=== PATIENT | male | born 1970 | race Caucasian/White ===

== ENCOUNTER 2024-07-16 17:35 | Emergency (ER) | payer MEDICARE, SELFPAY ==
--- NOTE | ~2024-07-16 | XR_ITS ---
EXAMINATION: XR wrist LT min 3V DATE: 07/16/2024 18:27 INDICATION: Left wrist injury post fall TECHNIQUE: Posteroanterior, ulnar deviation, oblique, and lateral views of the affected wrist were ob tained. COMPARISON: none FINDINGS: Postoperative change of prior proximal row carpectomy with resection of the scaphoid, lunate and triq uetrum. Expected proximal migration of the distal carpal row into the lucent space at the resected pr oximal carpal row. Alignment is otherwise normal. Mild osteoarthritis at the first carpometacarpal khari int. No acute fracture. Soft tissues are unremarkable. IMPRESSION: 1. Postoperative change of prior proximal row carpectomy. No acute osseous abnormality. Reviewed, dictated and finalized at location A. IMPRESSION: 1. Postoperative change of prior proximal row carpectomy. No acute osseous abno rmality.
--- NOTE | 2024-07-16 17:43 | ED.UPPEXIN ---
HPI - Extremity Injury (Upper) General Chief Complaint: Extremity Injury, Upper Stated Complaint: LT Wrist Pain Time Seen by Provider: 07/16/24 17:59 Source: patient and RN notes reviewed Mode of arrival: ambulatory Limitations: no limitations History of Present Illness HPI narrative: 53-year-old male presents with concern for injury to the left wrist. He reports history of ligament injury for which she had surgery 7 months ago. Reports today he caught himself when falling and the left wrist is now painful and swollen. complaint: injury to: left and wrist Review of Systems Review of Systems: CONSTITUTIONAL: Denies malaise, chills, sweats, or fever. SKIN: Denies rash or itching, open skin, laceration, abrasion, redness, warmth MUSCULOSKELETAL: Reports left wrist pain and swelling NEUROLOGIC: Denies numbness, weakness All systems reviewed & are unremarkable except as noted in HPI and below PMFSH Comments At time of signature, agree with nursing past medical, surgical, social and family history. There is no relevant family history pertinent to the presenting complaint Exam Narrative: GENERAL: Well-appearing, well-nourished, and in no acute distress. HEAD: Normocephalic, atraumatic. EYES: PERRLA, conjunctivae clear NECK: Supple. CHEST: Speaks in full sentences. No respiratory distress. HEART: Regular rate and rhythm. Normal and equal peripheral pulses. EXTREMITIES: Left wrist, hand, digits have grossly normal strength and sensation, normal range of motion. Moderate wrist edema without ecchymosis. Normal sensation with sensitivity to light touch and pain. Lateral wrist and hand tenderness. No open wounds, no skin tenting, no devitalized tissue or atrophy, no trophic changes, no obvious deformity, alignment normal, nearby joints and structures intact. Distal pulses palpable and equal bilaterally, skin warm, dry, pink. Capillary refill less than 3 seconds. SKIN: Warm, dry, no rash. NEURO: Alert and oriented x3. PSYCH: Normal mood and affect Course Course Emergency Course: Patient is aware of diagnosis, understands and agrees to treatment plan. Anticipatory guidance given. Patient agrees to follow-up as directed and is aware of reasons to seek care at the emergency department. Portions of this record may have been created with voice recognition software Level of Care: Express Care Visit Vital Signs Vital signs: Vital Signs Temperature 98.0 F 07/16/24 18:00 Pulse Rate 77 08/20/24 18:00 Respiratory Rate 18 07/16/24 18:00 Blood Pressure 117/64 07/16/24 18:00 Pulse Oximetry 98 07/16/24 18:00 Oxygen Delivery Room Air 07/16/24 18:00 Temperature 98.0 F 07/16/24 18:00 Pulse Rate 77 07/16/24 18:00 Respiratory Rate 18 07/16/24 18:00 Blood Pressure 117/64 07/16/24 18:00 Pulse Oximetry 98 07/16/24 18:00 Oxygen Delivery Room Air 07/16/24 18:00 Reviewed. MDM - Extremity Injury (Upper) Imaging Data My impression: Images reviewed, interpreted by radiologist, agree, see report. Radiologist's impression: EXAMINATION: XR wrist LT min 3V DATE: 07/16/2024 18:27 INDICATION: Left wrist injury post fall TECHNIQUE: Posteroanterior, ulnar deviation, oblique, and lateral views of the affected wrist were obtained. COMPARISON: none FINDINGS: Postoperative change of prior proximal row carpectomy with resection of the scaphoid, lunate and triquetrum. Expected proximal migration of the distal carpal row into the lucent space at the resected proximal carpal row. Alignment is otherwise normal. 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 No acute fracture. Soft tissues are unremarkable. IMPRESSION: 1. Postoperative change of prior proximal row carpectomy. No acute osseous abnormality. Critical Care Time Critical Care Time Critical Care Time: No Discharge Plan Discharge Clinical Impression: Sprain and strain of wrist Patient Disposition: Home, Self-Care Con
[2024-07-16 18:00] VITALS: BP 117/64; PULSE 77; RESP 18; TEMP 36.7; O2SAT 98
== END 2024-07-16 18:55 | disposition home or self-care (01) ==
PROVIDERS: Emergency Provider Nurse Practitioner
DX: S63.502A Unspecified sprain of left wrist, initial encounter (principal); S66.912A Strain of unspecified muscle, fascia and tendon at wrist and hand level, left hand, initial encounter; W19.XXXA Unspecified fall, initial encounter
CPT/HCPCS: 73110; 99203; G0463

== ENCOUNTER 2025-06-23 15:26 | Emergency (ER) | payer MEDICARE, OTHER, SELFPAY ==
--- NOTE | 2025-06-23 15:28 | ED_ITS ---
HPI - Skin/Abscess/Foreign Bdy General Chief complaint: Wound/Laceration Stated complaint: Stung by wasp on rt arm tricep Time Seen by Provider: 06/23/25 15:54 Source: patient and RN notes reviewed Mode of arrival: ambulatory Limitations: no limitations History of Present Illness HPI narrative: 54-year-old male presents with concern for last sting on his right upper arm. Reports 4 days ago he was stung by a wasp and since then the area has become tender and he feels a hard tender knot. He denies fever, body aches, chills, sweats. He denies swollen lips, swollen tongue, trouble breathing. He reports a rash on his bilateral ankles. He was doing yd work when he was done. MD complaint: insect bite/sting Related Data Home Medications ?Medication ?Instructions ?Recorded ?Confirmed ?Last Taken ?Type dextroamphetamine-amphetamine ER PO 06/23/25 Unknown History 30 mg 24hr capsule,extend release escitalopram oxalate 20 mg tablet mg 06/23/25 Unknown History lamotrigine 100 mg disintegrating mg 06/23/25 Unknown History tablet levothyroxine 100 mcg tablet mcg 06/23/25 Unknown History pantoprazole 40 mg tablet,delayed mg PO 06/23/25 Unknown History release Allergies Allergy/AdvReac Type Severity Reaction Status Date / Time Penicillins Allergy Mild Hives Verified 06/23/25 15:47 Review of Systems Review of Systems: CONSTITUTIONAL: Denies malaise, chills, sweats, or fever. EYES: Denies redness, or discharge. ENT: Denies rhinorrhea, congestion, swollen lips, swollen tongue CARDIOVASCULAR: Denies chest pain, palpitations, or edema. RESPIRATORY: Denies cough or dyspnea. GASTROINTESTINAL: Denies abdominal pain, nausea, vomiting SKIN: Reports wasp sting with a painful hard red on his right upper arm. Reports rash on his bilateral lower legs MUSCULOSKELETAL: Denies joint pain or myalgia. NEUROLOGIC: Denies headache. All systems reviewed & are unremarkable except as noted in HPI and below PMFSH Comments At time of signature, agree with nursing past medical, surgical, social and family history. There is no relevant family history pertinent to the presenting complaint Exam Narrative: GENERAL: Well-appearing, well-nourished, and in no acute distress. HEAD: Normocephalic, atraumatic. EYES: PERRLA, conjunctivae clear, and EOMI. ENT: Mucous membranes moist. Oropharynx without edema, erythema or lesions. NECK: Supple. No lymphadenopathy CHEST: Clear to auscultation. No respiratory distress. HEART: Regular rate and rhythm. SKIN: Warm, dry. Approximately 1.5 cm red palpable tender knot on the right tricep surrounded by approximately 7 cm of erythema without induration. No f luctuation or drainage noted. Flat patch of erythema noted to the left ankle. NEURO: Alert and oriented x3. PSYCH: Normal mood and affect Course Course Emergency Course: Patient is aware of diagnosis, understands and agrees to treatment plan. Anticipatory guidance given. Patient agrees to follow-up as directed and is aware of reasons to seek care at the emergency department. Portions of this record may have been created with voice recognition software Level of Care: Express Care Visit Vital Signs Vital signs: Vital Signs Temperature 97.3 F L 06/23/25 15:44 Pulse Rate 76 06/23/25 15:44 Respiratory Rate 18 06/23/25 15:44 Blood Pressure 128/80 06/23/25 15:44 Pulse Oximetry 97 06/23/25 15:44 Oxygen Delivery Room Air 06/23/25 15:44 Temperature 97.3 F L 06/23/25 15:44 Pulse Rate 76 06/23/25 15:44 Respiratory Rate 18 06/23/25 15:44 Blood Pressure 128/80 06/23/25 15:44 Pulse Oximetry 97 06/23/25 15:44 Oxygen Delivery Room Air 06/23/25 15:44 Reviewed. MDM - Skin/Abscess/Foreign Bdy MDM Narrative Medical decision making narrative: Does not appear at this time to be erythema multiforme, bullous, SJS, TEN; no evidence at this time to suggest RMSF, endocarditis or Lyme disease; patient looks well, nontoxic and is tolerating oral intake; no neurologic signs or symptoms; no headache, photophobia or neck pain; afebrile; appropriate for initial outpatient treatment; discussed the importance of follow-up, patient agrees; question, viral exanthema, contact dermatitis, allergic dermatitis, eczema, urticaria, cellulitis, insect sting. No soft palate or uvula edema, no tongue, lip edema or other mucosal involvement, no respiratory compromise, no stridor, no wheezing, no wheezing, no history of syncope, no hypotension, no nausea, vomiting, or diarrhea. Instructed patient to go to nearest ER immediately for any worsening symptoms including but not limited to: fever, spreading rash, pain, sore throat, headache, dizziness, chest pain, trouble breathing, or any symptoms concerning to the patient. Critical Care Time Critical Care Time Critical Care Time: No Discharge Plan Discharge Clinical Impression: Infected insect bite or sting Patient Disposition: Home Condition: Stable Instructions: Antibiotic Form, Cellulitis (ED) Additional Instructions: Take antibiotic as directed Taking an antihistamine such as diphenhydramine (Benadryl) every 6 hours or a nonsedating one such as Zyrtec daily will help with itching and swelling. Take acetaminophen (Tylenol) or ibuprofen (Motrin) for pain relief as needed. Wash the sting site with soap and water. Apply hydrocortisone cream to the sting site and surrounding skin can help relieve redness and itching. Please follow-up with your primary care doctor if your symptoms do not improve. If you have any worsening of symptoms or any other urgent concerns please go to the ER. Please take medications as prescribed and continue taking your home medications as usual. Patient Language: Burkinan Prescriptions: New cephalexin 500 mg capsule 500 mg PO QID 10 Days Qty: 40 0RF No Action levothyroxine 100 mcg tablet pantoprazole 40 mg tablet,delayed release (DR/EC) PO dextroamphetamine-amphetamine 30 mg capsule,extended release 24hr PO escitalopram oxalate 20 mg tablet lamotrigine 100 mg tablet,disintegrating Follow-up/Referrals: Amara,BYRON Lyon [Primary Care Provider] - Time of Disposition: 16:02
--- OUTSIDE RECORDS SUMMARY | 2025-06-23 15:30 | XMS_ITS | Clinical Summary ---
Author Organization [facility] Address [address] [place] [id number] Care Team Providers Care Solid Waste Facility Supervisor Name Role Phone Jeannine Maloney NP Primary Care Provider [phone] Allergies Active Allergy Reactions Criticality Noted Date Comments Alcohol Anaphylaxis High 06/01/2013 Ethyl Alcohol Anaphylaxis High 04/10/2024 Ibuprofen Unknown Low 06/01/2013 NO NSAIDS DUE TO BARIATRIC SURGERY IN PAST NO NSAIDS DUE TO BARIATRIC SURGERY IN PAST NASIDS due to bariatric procedure. Nsaids (Non-Steroidal Anti-Inflammatory Drug) Unknown Medium 11/16/2021 Gastric surgery Penicillins Anaphylaxis,Hives High 05/27/2013 Hives as a child Medications albuterol HFA (PROVENTIL HFA,VENTOLIN HFA,PROAIR HFA) 90 mcg/actuation inhaler Inhale 1 puff every 4 (four) hours 03/29/20 24 Active testosterone cypionate (DEPO-TESTOTERONE) 200 mg/mL injection Inject 1 mL (200 mg total) into the muscle as instructed every 7 days 07/05/20 22 Active gabapentin (NEURONTIN) 300 mg capsule Take 1 capsule (300 mg total) by mouth 3 (three) times a day AND 3 capsules (900 mg total) nightly. 180 capsule 2 11/28/19 25 Active propranoloL (INDERAL) 10 mg tablet Take 1 tablet (10 mg total) by mouth 3 (three) times a day as needed (anxiety) 90 tablet 2 12/04/19 25 Active levothyroxine (SYNTHROID) 100 mcg tablet TAKE 1 TABLET BY MOUTH EVERY MORNING BEFORE BREAKFAST 100 tablet 04/22/[address] (PROTONIX) 40 mg EC tabletIndications: Gastric reflux Take 1 tablet (40 mg total) by mouth daily 90 tablet 3 05/13/20 25 Active escitalopram (LEXAPRO) 20 mg tablet Take 1 tablet (20 mg total) by mouth daily 90 tablet 1 05/13/20 25 Active lamoTRIgine (LaMICtal) 100 mg disintegrating tablet Take 1 tablet (100 mg total) by mouth 2 (two) times a day 180 tablet 1 05/13/20 25 Active Vraylar 6 mg capsule capsule Take 1 capsule (6 mg total) by mouth daily 90 capsule 1 05/13/20 25 Active dextroamphetamine- amphetamine XR (Adderall XR) 30 mg 24 hr capsule Take 2 capsules (60 mg total) by mouth daily 60 capsule 06/16/20 25 Active baclofen (LIORESAL) 10 mg tabletIndications: Muscle Spasticity of Spinal Origin Take 1 tablet (10 mg total) by mouth 2 (two) times a day as needed for muscle spasms 45 tablet 1 09/11/20 24 025 Discontinu ed(Therapy completed) traMADoL (ULTRAM) 50 mg tablet Take 1 tablet (50 mg total) by mouth 2 (two) times a day as needed for pain 60 tablet 1 10/14/20 24 025 Discontinu ed(Therapy completed) atomoxetine (STRATTERA) 80 mg capsule TAKE 1 CAPSULE BY MOUTH DAILY IN THE MORNING 11/11/20 24 025 Discontinu ed(Therapy completed) dextroamphetamine- amphetamine XR (Adderall XR) 30 mg 24 hr capsule Take 2 capsules (60 mg total) by mouth daily 60 capsule 05/13/20 25 025 Discontinu ed(Reorder ) lamoTRIgine (LaMICtal) 100 mg tablet Take 3 tablets (300 mg total) by mouth daily 90 tablet 05/13/20 25 025 Discontinu ed(Duplica te order) doxycycline (VIBRAMYCIN) 100 mg capsule Take 1 tablet/capsule (100 mg total) by mouth 2 (two) times a day for 10 days 20 tablet/caps ule 05/28/20 25 025 Active Problems Problem Noted Date Diagnosed Date Insomnia related to another mental disorder 12/2024 Severe major depression, sin gle episode, without psychotic features 05/28/2025 Assessment & Plan (05/28/2025 8:41 AM CDT): Orders: Comprehensive metabolic panel; Future RLS (restless legs syndrome) 05/28/2025 Assessment & Plan (05/28/2025 8:41 AM CDT): Morbid obesity with BMI of 40.0-44.9, adult 09/28 Assessment & Plan (05/28/2025 8:41 AM CDT): We have him down another 20 pounds. He does have excess skin from his weight loss journey over the years. Assessment & Plan (10/19/2024 8:53 PM POLL CLERK): BMI Follow-up includes: education provided. Medicare annual wellness visit, subsequent 10/14 Assessment & Plan (12/02/2024 3:51 PM POLL CLERK): -Recommended: Healthy diet. Avoiding junk food/fast food. -30 minutes of exercise most days of the week. Increase to 45 minutes for weight loss. Health Maintenance reviewed - flu shot given today Labs ordered.. -Influenza vaccine every year Recommend: - Topic Date Due Pneumococcal vaccine <65 (1 of 2 - PCV) Never done -F/u in 1 year for Annual PE or sooner if needed Assessment & Plan (10/14/2024 8:54 PM POLL CLERK): Patient Counseling: --Nutrition: Stressed importance of moderation in sodium/caffeine intake, saturated fat and cholesterol, caloric balance, sufficient intake of fresh fruits, vegetables, --Exercise: Stressed the importance of regular exercise. --Continue routine dental and vision visits --Immunizations reviewed and offered pneumococcal vaccine recommended -- Discussed benefits of screening colonoscopy.- starting at age 45-50: Recommended -Routine labs/ screenings No new labs. Depression, recurrent 10/14/2024 Assessment & Plan (12/02/2024 3:53 PM POLL CLERK): Has never been stable. Currently on lamictal, vraylar, escitalopram, will continue current medication. Refer to new psychiatrist Assessment & Plan (10/16/2024 12:48 PM POLL CLERK): Active. Is seeing psychiatry. Emotionally labile. Lumbosacral spondylosis without myelopathy 09/09 Spondylosis of lumbar region without myelopathy or radiculopathy 07/19/2024 Lumbar post-laminectomy syndrome 07/19/2024 Assessment & Plan (10/14/2024 8:51 PM POLL CLERK): Chronic, worsening problem: Has documented MRI and history of trauma to his back. I called [facility] and we did not refer him so they would not give out information over the phone. We did get a consent signed to obtain information from them before visit ended. I called patient's pharmacy and they only had one prescription on file from [facility] and that was the baclofen. I discussed this with Seven. I agreed to prescribe the tramadol at two tablets daily. I asked him to sign an opioid agreement. I asked him to follow up in 1 month for recheck. I checked their [place] [employer]APH[employer] sheet, and it was consistent with prescribed medications. [id number] transgender person 07/11/2024 Assessment & Plan (05/28/2025 8:41 AM CDT): Orders: Total testosterone; Future Assessment & Plan (12/02/2024 3:50 PM POLL CLERK): Check testosterone level. Assessment & Plan (07/11/2024 2:21 PM CDT): On testosterone therapy. Acquired hypothyroidism 07/11/2024 Assessment & Plan (05/28/2025 8:41 AM CDT): Orders: Thyroid Function [facility]; Future CBC with auto differential; Future Assessment & Plan (12/02/2024 3:50 PM POLL CLERK): Check TSH today. Continue current medication. . Please take levothyroxine on an empty stomach. This means 1 hour before eating or 2 hours after eating. Food in the stomach will interfere with absorption of the levothyroxine. Calcium, antacids and iron supplements will also interfere with the absorption of levothyroxine. Please take these at a different time of the day Assessment & Plan (07/11/2024 8:16 PM CDT): Check TSH today. Continue current medication. . Please take levothyroxine on an empty stomach. This means 1 hour before eating or 2 hours after eating. Food in the stomach will interfere with absorption of the levothyroxine. Calcium, antacids and iron supplements will also interfere with the absorption of levothyroxine. Please take these at a different time of the day Chronic toe pain, right foot 07/11/2024 Assessment & Plan (09/15/2024 8:54 PM CDT): Obtain x-ray and labs as previously ordered. Gave name and number for podiatry referral Assessment & Plan (07/11/2024 8:18 PM CDT): Will obtain x-ray. Refer to podiatry. Post-traumatic osteoarthritis of right foot 06/27 Encounter for monitoring testosterone replacemen t therapy 04/12/2024 Overview (04/12/2024): -testosterone injections weekly -previously following in transgender clinic in [place] Endocrine referral placed. ADHD 04/12/2024 Overview (04/12/2024): -just moved here from [place] -his previous psychiatrist provided three month supply of most medications -last dose of adderall 60mg was this morning -he is pacing the room during exam -very tearful about getting adderall prescription -he reports he has been on this for 2-3 years -when asked about Strattera he does not know if he is taking this medication I discussed this is a controlled substance and will not be able to sign now during our visit, I informed him I will do my best to get a renewal today, I have also provided him a list of psychiatrists and the same day access center. He did call his previous psychiatrist in [place] during our visit. Assessment & Plan (12/02/2024 3:48 PM POLL CLERK): Will take over ADHD medication until he is seen by another psychiatrist. He has to take urinalysis drugs of abuse screen. We discussed why this is necessary as confirmation of use of medication. Discussed need for monthly rx, and he cannot lose or abuse medication. 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 Still having pain left lateral wrist. Continues to wear wrist brace. Refer to ortho hand for re-evaluation History of bariatric surgery 10/16/2022 Arthritis 06/01/2022 RBBB (right bundle branch block) 06/11/2020 Post-traumatic osteoarthritis of right knee 04/27 Polycythemia 05/08/2020 Assessment & Plan (07/11/2024 8:12 PM CDT): History of polycythemia. Will recheck cbc with labs today Chronic pain 04/03/2020 Overview (04/12/2024): -long history with pain -following with [facility] neurosurgery -he was recently told his right leg is longer than his left leg -Neurosurgery referred to pain management, weight management, orthotics -gabapentin 900mg TID Continue to follow with neurosurgery. Assessment & Plan (09/15/2024 8:51 PM CDT): I told him that I do not even have methocarbamol on his med list, nor baclofen. He still has clonazepam on his med list, but states that he has discontinued that. I told him that I am not going to restart both muscle relaxers. He takes the gabapentin 300mg once daily. I will continue that for him. Will restart baclofen. F/u Nov. As scheduled Traumatic brain injury 07/12/2019 Assessment & Plan (12/02/2024 3:50 PM POLL CLERK): History of TBI. Has a lot of PTSD from incident and emotional lability. Will try to refer back to neurology at [facility]. 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 Emotionally labile. Tearful, angry and stops crying easily. Frequently brings up his TBI from 2012. States he has difficulty recalling events and couldn't recall what medications he was taking so that is why he asked for the methocarbamol, although it is not on his current med list and is not on the list he has on his phone. Cites stress, currently going back to college and the current political environment contributing to his stress and mood. We were not to get through questions for the medicare wellness exam of PHQ due to his inability to answer questions in a straightforward manner without him becoming tearful, discussing his chronic pain, TBI, disability, difficulty sleeping and inability to deal with it all. Assessment & Plan (07/11/2024 8:09 PM CDT): On multiple psychiatric medications. Has psychiatrist in [place]. Spinal stenosis of lumbar region 02/26/2018 Assessment & Plan (07/11/2024 8:10 PM CDT): Since injury. Has had surgery. On gabapentin 900mg tid. Has had recent MRI. Will refer to pain management a little closer since he has not heard from [facility] referral. Posttraumatic stress disorder 12/17/2015 Overview (04/12/2024): -previous psychiatrist in [place] prescribing: cariprazine 6mg, clonazepam 1mg two to three times a day, three if having a panic attack, adderall 60mg, lamotrigine 300mg, venlafaxine 150mg tablet -recently switched to venlafaxine from citalopram -he cannot explain anxiety -a lot going on with recent move to [facility] -also with mixed bipolar and PTSD Refilled venlafaxine today, provided psych resources and same day access center. Assessment & Plan (12/02/2024 3:46 PM POLL CLERK): I will take over medications while we refer to new psychiatrist in [place]. However, I told him that he has now refused to go back to a couple of different psychiatrist. Pt recalls only one, the recent Capacitor Assembler at [facility]. However, review of chart and [place] GRAPH[employer] INTERN revieals that he has gone to see [facility] for psychiatrist last year. He wasn't happy with them either. We discussed that he has to trust somone. Assessment & Plan (08/08/2024 11:36 AM CDT): I referred him to suddenly [facility] in [place] for their walk-in clinic today. I believe they can help them with their immediate needs. However I told them if they run into road blocks I would be willing to prescribe short-term medications that he has been stable on until they finding more local psychiatrist. Addendum: Patient did go to [facility] walk in clinic. She was able to see him today and refill medication. She was not able to do controlled medication. After talking to the DESK ASSISTANT via phone I did refill his clonazepam at 0.5 mg b.i.d.. I can do that until he is able to establish with regular psychiatry clinic. It appears that his Adderall XR was refilled on July 16. But they may call for refill of the Adderall and I am willing to fill that as well on a temporary basis. Resolved Problems Problem Noted Date Diagnosed Date Resolved Date Thyroid disease 07/12/2019 07/11/2024 Encounters Date Type Department Care Team Description 05/28/2025 8:00 AM CDT Office Visit [facility] Primary Care at [address] [phone] Jeannine Maloney NP Acquired hypothyroidism (Primary Dx); Severe major depression, single episode, without psychotic features (HCC); Lipid screening; [employer] transgender person; Non-recurrent acute suppurative otitis media of left ear without spontaneous rupture of tympanic membrane; Morbid obesity with BMI of 40.0-44.9, adult (HCC); RLS (restless legs syndrome) 05/13/2025 Orders Only [facility] Primary Care at [address] [phone] Jeannine Maloney NP 05/13/2025 Orders Only [facility] Primary Care at [address] [phone] Jeannine Maloney NP Gastric reflux from Last 3 Months Immunizations Immunization Administration Dates Next Due Influenza, Quadrivalent, Rec ombinant, Egg Free, Preservative Free, Intramuscular 10/12/2022 Influenza, Quadrivalent, Spl it, Preservative Free, Intramuscular 08/11/2023 Influenza, Trivalent, Cell Culture-based MDCK, Preservative Free, Antibiotic Free, Intramuscular 07/30/2024 Influenza, Trivalent, IM (MDV) 08/27/2021,2016 Influenza, Unspecified 08/26/2024,2023(Deferred: Patient Refused),11/27/2023(Deferred: Patient Refused),11/27/2022(Deferred: Patient Refused),12/06/2012,07/31/2009 MMR 07/24/2019,03/19/2019 Pfizer SARS-CoV-2 Monovalent Vaccination (12+ Yrs) PURPLE 10/12/2022,09/07/2021,10/30/2020 Tdap 08/11/2023,04/28/2013 Tetanus Immune Globulin 05/27/2013 ZOSTER Recombinant 10/12/2022 Surgical History Surgery Date Site/Laterality Comments COLON SURGERY 11/27/2013 - 11/26/2014 BARIATRIC SURGERY 11/27/2010 - 11/26/2011 CHOLECYSTECTOMY 11/27/2010 - 11/26/2011 WRIST SURGERY 11/27/2022 - 11/26/2023 and elbow KNEE ARTHROPLASTY Left Medical History Medical History Date Comments Asthma Gastric reflux Osteoarthritis Diverticulitis of colon Bariatric surgery status Adhd TBI (traumatic brain injury) (HCC) History of left knee replacement Back pain with history of spinal surgery Social History Tobacco Use Types Packs/Day Years Used Date Smoking Tobacco: Former Cigarettes Smokeless Tobacco: Never Tobacco Cessation:Counseling Given: Not Answered AUDIT-C Answer Date Recorded Q1: How often do you have a drink containing alcohol? Never 10/16/2024 Q2: How many drinks containi ng alcohol do you have on a typical day when you are drinking? Patient does not drink Q3: How often do you have si x or more drinks on one occasion? Never 10/16/2024 PHQ-2 Answer Date Recorded PHQ-2 Total Score (If total score is 3 or more points, staff should administer the PHQ-9) 2 05/28/2025 PHQ-9 Answer Date Recorded PHQ-9 Total Score 24 11/28/2024 Comments Unknown Sex and Gender Information Value Date Recorded Sex Assigned at Not on file Legal Sex Female 9:43 AM CDT Gender Identity Transgender Male 07/11/2024 8:14 PM CDT Sexual Orientation Not on file Obstetrics History Last Filed Vital Signs Vital Sign Reading Time Taken Comments Blood Pressure 128/84 05/28/2025 8:05 AM CDT Pulse 72 05/28/2025 8:05 AM CDT Temperature 36.7 C (98.1 F) 05/28/2025 8:05 AM CDT Respiratory Rate 18 05/28/2025 8:05 AM CDT Oxygen Saturation 99% 05/28/2025 8:05 AM CDT Inhaled Oxygen Concentration - - Weight 110.8 kg (244 lb 4.8 oz) 05/28/2025 8:05 AM CDT Height 165.1 cm (5' 5) 05/28/2025 8:05 AM CDT Body Mass Index 40.65 05/28/2025 8:05 AM CDT Plan of Treatment Health Maintenance Due Date Last Done Comments Breast Cancer Screening-Mammogram 1970 Cervical Cancer Screening 1970 Colon Cancer Screening-Colonoscopy 1970 Pneumococcal vaccine <65 (1 of 2 - PCV) 1989 Zoster Vaccine (2 of 2) 12/07/2022 10/12/2022 Influenza Vaccine (#1) 2025 , 07/30/2024, 08/11/2023, Additional history exists Regular Well Visit/Exam 18-64 11/28/2025 11/28/2024, 10/14/2024 Depression Screening 05/28/2026 05/28/2025, 11/28/2024, 10/14/2024, Additional history exists DTaP/Tdap/Td Vaccine (3 - Td or Tdap) 08/11/2033 08/11/2023, 04/28/2013 Hepatitis B Screening Completed 12/25/2023 Covid-19 Vaccine Completed 07/30/2024, , 03/11/2022, Additional history exists Hepatitis C Screening Completed 09/11/2024 Procedures Procedure Name Priority Date/Time Associated Diagnosis Comments HEPATITIS C ANTIBODY Routine 09/11/2024 4:10 PM CDT Encounter for hepatitis C screening test for low risk patient from Last 3 Months or Most Recently Relevant to Health Maintenance Results * Hepatitis C antibody Blood (09/11/2024 4:10 PM CDT) Hep C Ab Nonreactive Nonreactive Comment: Interpretive Data Nonreactive: Antibodies to HCV not detected. Does NOT exclude the possibility of recent exposure to HCV. Equivocal: Equivocal for HCV antibodies. Supplemental molecular testing will be automatically performed to determine infection status in accordance with current CDC screening recommendations. Reactive: Positive for HCV antibodies. This may represent current or past HCV infection. Supplemental molecular testing will be automatically performed to determine current infection status in accordance with current CDC screening recommendations. Interpretive data was last revised on 2020. Blood 09/11/2024 4:10 PM CDT 09/11/2024 8:41 PM CDT Jeannine Maloney NP LAB MICROBIOLOGY - GENERAL OR DERABLES Final Result Performing Organization Address City/State/ZIP Co fl Phone Number [facility] [phone] Department [place] [address] from Last 3 Months or Most Recently Relevant to Health Maintenance Insurance MEDICARE MEDICARE [facility] CHOICE PLUS [facility] HMO/PPO Address: [address] [place] [address] Care Teams Solid Waste Facility Supervisor Relationship Specialty Start Date End Date Jeannine Maloney NP [address] [facility] [address] [place] [address] PCP - General Family Medicine 11/21/24
--- OUTSIDE RECORDS SUMMARY | 2025-06-23 15:30 | XMS_ITS | Referral Summary ---
Author Organization [facility] Address [address] [place] [id number] Care Team Providers Care Sergeant At Arms Name Role Phone Jeannnie Maloney NP Primary Care Provider Encounters Date Type Department Care Team Description 05/28/2025 8:00 AM CDT Office Visit [facility] Primary Care at [address] [phone] Jeannine Maloney NP Acquired hypothyroidism (Primary Dx); Severe major depression, single episode, without psychotic features (HCC); Lipid screening; [id number]-[id number] transgender person; Non-recurrent acute suppurative otitis media of left ear without spontaneous rupture of tympanic membrane; Morbid obesity with BMI of 40.0-44.9, adult (HCC); RLS (restless legs syndrome) 05/13/2025 Orders Only [facility] Primary Care at [address] [phone] Jeannine Maloney NP 05/13/2025 Orders Only [facility] Primary Care at [address] [phone] Jeannine Maloney NP Gastric reflux from Last 3 Months Allergies Active Allergy Reactions Criticality Noted Date [...] for 10 days 20 tablet/caps ule 05/28/20 025 Active Problems Problem Noted Date Diagnosed [...] years. Assessment & Plan (10/19/2024 8:53 PM WAX ENGRAVER): BMI Follow-up includes: education provided. Medicare annual wellness visit, subsequent 10/14 Assessment & Plan (12/02/2024 3:51 PM WAX ENGRAVER): -Recommended: Healthy diet. Avoiding junk food/fast food. [...] needed Assessment & Plan (10/14/2024 8:54 PM WAX ENGRAVER): Patient Counseling: --Nutrition: Stressed importance of moderation [...] 10/14/2024 Assessment & Plan (12/02/2024 3:53 PM WAX ENGRAVER): Has never been stable. Currently on lamictal, vraylar, escitalopram, will continue current medication. Refer to new psychiatrist Assessment & Plan (10/16/2024 12:48 PM WAX ENGRAVER): Active. Is seeing psychiatry. Emotionally labile. Lumbosacral spondylosis without myelopathy 09/09 Spondylosis of lumbar region without myelopathy or radiculopathy 07/19/2024 Lumbar post-laminectomy syndrome 07/19/2024 Assessment & Plan (10/14/2024 8:51 PM WAX ENGRAVER): Chronic, worsening problem: Has documented MRI and history of trauma to his back. I called [facility] and we did not refer him so they would not give out information over the phone. We did get a consent signed to obtain information from them before visit ended. I called patient's pharmacy and they only had one prescription on file from [facility] and that was the baclofen. I discussed this with Seven. I agreed to prescribe the tramadol at two tablets daily. I asked him to sign an opioid agreement. I asked him to follow up in 1 month for recheck. I checked their [place] ROTARY HELPER sheet, and it was consistent with prescribed medications. [id number]-tg-[id number] transgender person 07/11/2024 Assessment & Plan (05/28/2025 8:41 AM CDT): Orders: Total testosterone; Future Assessment & Plan (12/02/2024 3:50 PM WAX ENGRAVER): Check testosterone level. Assessment & Plan (07/11/2024 2:21 PM CDT): On testosterone therapy. Acquired hypothyroidism 07/11/2024 Assessment & Plan (05/28/2025 8:41 AM CDT): Orders: Thyroid Function [place]; Future CBC with auto differential; Future Assessment & Plan (12/02/2024 3:50 PM WAX ENGRAVER): Check TSH today. Continue current medication. . [...] weekly -previously following in transgender clinic in [place] Endocrine referral placed. ADHD 04/12/2024 Overview (04/12/2024): -just moved here from [place] -his previous psychiatrist provided three month supply [...] He did call his previous psychiatrist in [place] during our visit. Assessment & Plan (12/02/2024 3:48 PM WAX ENGRAVER): Will take over ADHD medication until he [...] (07/11/2024): Added automatically from request for surgery [id number] Assessment & Plan (07/11/2024 8:11 PM CDT): [...] 07/12/2019 Assessment & Plan (12/02/2024 3:50 PM WAX ENGRAVER): History of TBI. Has a lot of PTSD from incident and emotional lability. Will try to refer back to neurology at [facility]. 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 Emotionally labile. Tearful, angry and [...] On multiple psychiatric medications. Has psychiatrist in [place]. Spinal stenosis of lumbar region 02/26/2018 Assessment & Plan (07/11/2024 8:10 PM CDT): Since injury. Has had surgery. On gabapentin 900mg tid. Has had recent MRI. Will refer to pain management a little closer since he has not heard from [facility] referral. Posttraumatic stress disorder 12/17/2015 Overview (04/12/2024): -previous psychiatrist in [place] prescribing: cariprazine 6mg, clonazepam 1mg two to three times a day, three if having a panic attack, adderall 60mg, lamotrigine 300mg, venlafaxine 150mg tablet -recently switched to venlafaxine from citalopram -he cannot explain anxiety -a lot going on with recent move to [facility] -also with mixed bipolar and PTSD Refilled venlafaxine today, provided psych resources and same day access center. Assessment & Plan (12/02/2024 3:46 PM WAX ENGRAVER): I will take over medications while we refer to new psychiatrist in [place]. However, I told him that he has now refused to go back to a couple of different psychiatrist. Pt recalls only one, the recent Tinning Equipment Tender at [facility]. However, review of chart and [place] ROTARY HELPER revieals that he has gone to see [facility] for psychiatrist last year. He wasn't happy with them either. We discussed that he has to trust [facility]. Assessment & Plan (08/08/2024 11:36 AM CDT): [facility] in [place] for their walk-in clinic today. I believe they can help them with their immediate needs. However I told them if they run into road blocks I would be willing to prescribe short-term medications that he has been stable on until they finding more local psychiatrist. Addendum: Patient did go to [facility] walk in clinic. She was able to see him today and refill medication. She was not able to do controlled medication. After talking to the DESIGN CELL ENGINEER via phone I did refill his clonazepam [...] Date Resolved Date Thyroid disease 07/12/2019 07/11/2024 Immunizations Immunization Administration Dates Next Due Influenza, [...] Tetanus Immune Globulin 05/27/2013 ZOSTER Recombinant 10/12/2022 Social History Tobacco Use Types Packs/Day Years [...] PM CDT Sexual Orientation Not on file Last Filed Vital Signs Vital Sign Reading [...] 05/28/2025 8:05 AM CDT Plan of Treatment Not on file Procedures Procedure Name Priority Date/Time Associated Diagnosis [...] 4:10 PM CDT 09/11/2024 8:41 PM CDT us Jeannine Maloney NP LAB MICROBIOLOGY - GENERAL OR DERABLES Final Result [facility] [id number] [place] [address] from Last 3 Months or Most Recently Relevant to Health Maintenance Insurance MEDICARE MEDICARE [facility] CHOICE PLUS Care Teams Sergeant At Arms Relationship Specialty Start Date End Date Jeannine Maloney NP [address] [id number] PCP - General Family Medicine 11/21/24
--- OUTSIDE RECORDS SUMMARY | 2025-06-23 15:30 | XMS_ITS | Patient Health Record ---
Author Organization [facility] [email or web address] Address [address] [facility] [address] [place] [address] Care Team Providers Care Director Adult Name Role Phone Amara GARBER, Jeannine Primary Care Provider Unavailab Brook Cheatham Unavailable [phone] Barb Mancera Unavailable [phone] Buck Du Unavailable [phone] Allergies No Known Allergies Reason For Referral No Information Medications Medication SIG (Take, Route, Frequency, Duration) Notes Start Date End Date Status Pantoprazole Sodium 40 MG TAKE 1 TABLET BY MOUTH DAILY Oral; Duration: 90 Days Unknown Atomoxetine HCl 80 MG 1 capsule in the m orning Orally Once a day; Duration: 90 days Active lamoTRIgine 100 MG 1 tablet on the tong ue and allow to dissolve Oral twice a day; Duration: 90 days Active Escitalopram Oxalate 20 MG 1 tablet Oral ly Once a day; Duration: 90 days Active Levothyroxine Sodium 100 MCG TAKE 1 TABLET BY MOUTH DAILY BEFORE BREAKFAST Oral; Duration: 90 Days Unknown Ventolin HFA 108 (90 Base) MCG/ACT 1 puff as needed Inhalation every 4 hrs Unknown Testosterone Cypionate 200 MG/ML INJECT 0.7 ML IN THE MUSCLE WEEKLY Intramuscular; Duration: 49 Days Unknown Propranolol HCl 10 MG 1 tablet Orally Three times a day; Duration: 30 days As needed Active Vraylar 6 MG 1 capsule Orally Onc e a day; Duration: 90 days Active Escitalopram Oxalate 10 MG 1 tablet Oral ly Once a day; Duration: 90 days Active Amphetamine-Dextroamphet ER 30 MG 2 capsule in the morning Orally Once a day; Duration: 30 days 10/02/2024 Active Gabapentin 300 MG 1 capsule Orally thr ee times a day Unknown Social History Tobacco Use: Social History Observation Description Date Details (start date - stop date) Never Smoker NA - NA Sex Assigned At : Social History Observation Description Sex Assigned At Female Household Question Answer Notes Marital status: Tobacco Control (Standard) Question Answer Notes Tobacco use: Nonsmoker AUDIT-C (Standard) Question Answer Notes Did you have a drink containing alcohol in the p ast year? No Problems Problem Type SNOMED Code ICD Code Onset Dates Problem Status W/U Status Risk Notes Problem Generalized anxiety disorder (06016310) RAEGAN (generalized anxiety disorder) (F41.1) Active confirmed Problem Attention deficit hyperactivity disorder (066032265) Adult ADHD (F90.9) Active confirmed Problem Severe major depression, single episode, without psychotic features ([id number]) MDD (major depressive disorder), severe (F32.2) Active confirmed Problem Insomnia disorder related to another mental disorder (42835736) 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) Active confirmed Vital Signs Heart Rate 83 /min 08/16/2024 Blood pressure diastolic 95 mm Hg 08/16/2024 Weight-kg 119.84 kg 08/16/2024 Blood pressure systolic 132 mm Hg 08/16/2024 Weight 264.2 lbs 08/16/2024 Encounters Encounter Location Date Provider Diagnosis [place] [address] [address] 08/08/2024 Buck Clubb RAEGAN (generalized anxiety disorder) F41.1 ; MDD (major depressive disorder), severe F32.2 and Adult ADHD F90.9 [place] [address] [address] 08/16/2024 Buck Clubb RAEGAN (generalized anxiety disorder) F41.1 ; MDD (major depressive disorder), severe F32.2 ; Adult ADHD F90.9 and Insomnia due to mental condition F51.05 [place] [address] [address] 09/17/2024 Brook Pendleton RAEGAN (generalized anxiety disorder) F41.1 ; MDD (major depressive disorder), severe F32.2 ; Adult ADHD F90.9 and Insomnia due to mental condition F51.05 [place] [address] [address] 10/21/2024 Barb Mancera Adult ADHD F90.9 ; MDD (major depressive disorder), severe F32.2 and RAEGAN (generalized anxiety disorder) F41.1 [place] [address] [facility] [address] [place] [address] 11/11/2024 Brook Pendleton RAEGAN (generalized anxiety disorder) F41.1 ; MDD (major depressive disorder), severe F32.2 ; Adult ADHD F90.9 and Insomnia due to mental condition F51.05 [facility] [address] [place] [address] 06/17/2025 Brook Pendleton [facility] [address] [place] [address] 06/06/2025 Brook Pendleton [facility] [address] [place] [address] 08/08/2024 [facility] [address] [place] [address] 09/17/2024 Brook Pendleton [facility] [address] [place] [address] 09/18/2024 [facility], [facility] [address] [place] [address] 09/19/2024 [facility], [facility] [address] [place] [address] 10/02/2024 Brook Pendleton Adult ADHD F90.9 [facility] [address] [place] [address] 10/02/2024 Brook Pendleton [facility] [address] [place] [address] 11/21/2024 Brook Pendleton MDD (major depressive disorder), severe F32.2 Assessments Encounter Date Diagnosis (ICD Code) Assessment Notes Treatment Notes Treatment Clinical Notes Section Notes 08/08/2024 RAEGAN (generalized anxiety disorder) (ICD-10 - F41.1) Patient had reduction in suicidal ideation and/or behavior upon follow-up assessment within 120 days of index assessment (M1357) 1. ADHD Evaluation and Management - Plan: Continue amphetamine-dext roamphetamine 30 mg and atomoxetine. Schedule an appointment with the upstairs provider for a controlled substance prescription. Monitor the patient's response to medication and any side effects. The patient reports having about two weeks of ADHD medication left. 2. Borderline Autism Management - Plan: Continue current management strategies. Monitor the patient's response to treatment and any side effects. 3. Anxiety Management - Plan: Taper clonazepam as tolerated and initiate propranolol up to three times a day as needed for anxiety. Monitor the patient's response to treatment and any side effects. The patient reports significant anxiety, especially in social situations. 4. Depression Management - Plan: Taper venlafaxine from 150 mg to 75 mg for two weeks, then initiate escitalopram 2.5 mg for two weeks before reevaluation. Monitor the patient's response to treatment and any side effects. The patient rates their depression at 5-6 out of 10. 5. Labs and Follow-up Coordination - Plan: Order blood work at [facility]. Schedule a follow-up appointment in two weeks to adjust venlafaxine and escitalopram dosages. 6. Safety and Suicide Risk Assessment - Plan: Assess for suicidal ideation and intent. Ensure that firearms are locked and ammunition is stored separately. Encourage continued counseling and support. The patient reports chronic suicidal thoughts but no current plan or intent. safety plan in place. pt aware of 988 crisis number. 08/08/2024 MDD (major depressive disorder), severe (ICD-10 - F32.2) Assessment and plan reviewed with patient Call for problems with medication, side effects or need for dosage change Discussed the risks/benefits of this medication Discussed medication side effects Patient education materials were given to the patient Treatment options reviewed Patient had reduction in suicidal ideation and/or behavior upon follow-up assessment within 120 days of index assessment (M1357) 1. ADHD Evaluation and Management - Plan: Continue amphetamine-dext roamphetamine 30 mg and atomoxetine. Schedule an appointment with the upstairs provider for a controlled substance prescription. Monitor the patient's response to medication and any side effects. The patient reports having about two weeks of ADHD medication left. 2. Borderline Autism Management - Plan: Continue current management strategies. Monitor the patient's response to treatment and any side effects. 3. Anxiety Management - Plan: Taper clonazepam as tolerated and initiate propranolol up to three times a day as needed for anxiety. Monitor the patient's response to treatment and any side effects. The patient reports significant anxiety, especially in social situations. 4. Depression Management - Plan: Taper venlafaxine from 150 mg to 75 mg for two weeks, then initiate escitalopram 2.5 mg for two weeks before reevaluation. Monitor the patient's response to treatment and any side effects. The patient rates their depression at 5-6 out of 10. 5. Labs and Follow-up Coordination - Plan: Order blood work at [facility]. Schedule a follow-up appointment in two weeks to adjust venlafaxine and escitalopram dosages. 6. Safety and Suicide Risk Assessment - Plan: Assess for suicidal ideation and intent. Ensure that firearms are locked and ammunition is stored separately. Encourage continued counseling and support. The patient reports chronic suicidal thoughts but no current plan or intent. safety plan in place. pt aware of 988 crisis number. 08/16/2024 RAEGAN (generalized anxiety disorder) (ICD-10 - F41.1) Assessment and Plan: 1. Major Depressive Disorder: - He rates depression at 06/05. - Continue Lamotrigine 100 mg, Vraylar 6 mg, and Venlafaxine 75 mg. - Increase escitalopram to 5 mg daily. - Taper Venlafaxine to 37.5 mg after 2 weeks until the follow-up appointment. 2. Generalized Anxiety Disorder: - He rates anxiety at -09/05. - increase propranolol to 20 mg TID PRN. - Start BuSpar; monitor for effectiveness at the follow-up appointment. - Encourage grounding techniques for intrusive thoughts, such as holding an ice cube and focusing on sensory experiences. 3. Attention Deficit Hyperactivity Disorder: - Refill atomoxetine 40 mg. - Refill amphetamine/dext roamphetamine for 30 days. - He reports feeling behind in school and having difficulty with executive function. 4. Insomnia: - He reports broken sleep, totaling approximately 4.5 hours per night. - Recommend melatonin 5 mg at bedtime, with an additional dose if waking up during the night. - Suggest magnesium 200-300 mg at bedtime to improve REM sleep. 5. Education and Support: - Discuss the importance of sleep hygiene and stress management techniques to improve overall mental health. - He expresses frustration with masking symptoms and difficulty finding consistent care. 6. Medication management - increase propranolol to 20 mg TID PRN. - Start BuSpar 5 mg BID - increase Escitalopram to 5 mg daily. - Continue Venlafaxine 75 mg daily for 2 weeks then decrease to 37.5 mg daily for 2 weeks then stop. - Stop Clonazepam, as the patient reports he is no longer taking it. - continue Atomoxetine HCL 40 mg daily. - continue Amphetamine-Dext roamphetamin ER 30 mg daily. - Continue Vraylar 6 mg daily. - Continue Lamotrigine 100 mg daily. 08/16/2024 MDD (major depressive disorder), severe (ICD-10 - F32.2) Assessment and plan reviewed with patient Call for problems with medication, side effects or need for dosage change Discussed the risks/benefits of this medication Discussed medication side effects Patient education materials were given to the patient Treatment options reviewed Assessment and Plan: 1. Major Depressive Disorder: - He rates depression at 06/05. - Continue Lamotrigine 100 mg, Vraylar 6 mg, and Venlafaxine 75 mg. - Increase escitalopram to 5 mg daily. - Taper Venlafaxine to 37.5 mg after 2 weeks until the follow-up appointment. 2. Generalized Anxiety Disorder: - He rates anxiety at -09/05. - increase propranolol to 20 mg TID PRN. - Start BuSpar; monitor for effectiveness at the follow-up appointment. - Encourage grounding techniques for intrusive thoughts, such as holding an ice cube and focusing on sensory experiences. 3. Attention Deficit Hyperactivity Disorder: - Refill atomoxetine 40 mg. - Refill amphetamine/dext roamphetamine for 30 days. - He reports feeling behind in school and having difficulty with executive function. 4. Insomnia: - He reports broken sleep, totaling approximately 4.5 hours per night. - Recommend melatonin 5 mg at bedtime, with an additional dose if waking up during the night. - Suggest magnesium 200-300 mg at bedtime to improve REM sleep. 5. Education and Support: - Discuss the importance of sleep hygiene and stress management techniques to improve overall mental health. - He expresses frustration with masking symptoms and difficulty finding consistent care. 6. Medication management - increase propranolol to 20 mg TID PRN. - Start BuSpar 5 mg BID - increase Escitalopram to 5 mg daily. - Continue Venlafaxine 75 mg daily for 2 weeks then decrease to 37.5 mg daily for 2 weeks then stop. - Stop Clonazepam, as the patient reports he is no longer taking it. - continue Atomoxetine HCL 40 mg daily. - continue Amphetamine-Dext roamphetamin ER 30 mg daily. - Continue Vraylar 6 mg daily. - Continue Lamotrigine 100 mg daily. 09/17/2024 RAEGAN (generalized anxiety disorder) (ICD-10 - F41.1) 10/02/2024 Adult ADHD (ICD-10 - F90.9) 10/21/2024 Adult ADHD (ICD-10 - F90.9) 10/21/2024 MDD (major depressive disorder), severe (ICD-10 - F32.2) 11/11/2024 RAEGAN (generalized anxiety disorder) (ICD-10 - F41.1) 11/21/2024 MDD (major depressive disorder), severe (ICD-10 - F32.2) 11/11/2024 MDD (major depressive disorder), severe (ICD-10 - F32.2) 10/21/2024 RAEGAN (generalized anxiety disorder) (ICD-10 - F41.1) 09/17/2024 MDD (major depressive disorder), severe (ICD-10 - F32.2) 08/16/2024 Adult ADHD (ICD-10 - F90.9) Assessment and Plan: 1. Major Depressive Disorder: - He rates depression at 06/05. - Continue Lamotrigine 100 mg, Vraylar 6 mg, and Venlafaxine 75 mg. - Increase escitalopram to 5 mg daily. - Taper Venlafaxine to 37.5 mg after 2 weeks until the follow-up appointment. 2. Generalized Anxiety Disorder: - He rates anxiety at -09/05. - increase propranolol to 20 mg TID PRN. - Start BuSpar; monitor for effectiveness at the follow-up appointment. - Encourage grounding techniques for intrusive thoughts, such as holding an ice cube and focusing on sensory experiences. 3. Attention Deficit Hyperactivity Disorder: - Refill atomoxetine 40 mg. - Refill amphetamine/dext roamphetamine for 30 days. - He reports feeling behind in school and having difficulty with executive function. 4. Insomnia: - He reports broken sleep, totaling approximately 4.5 hours per night. - Recommend melatonin 5 mg at bedtime, with an additional dose if waking up during the night. - Suggest magnesium 200-300 mg at bedtime to improve REM sleep. 5. Education and Support: - Discuss the importance of sleep hygiene and stress management techniques to improve overall mental health. - He expresses frustration with masking symptoms and difficulty finding consistent care. 6. Medication management - increase propranolol to 20 mg TID PRN. - Start BuSpar 5 mg BID - increase Escitalopram to 5 mg daily. - Continue Venlafaxine 75 mg daily for 2 weeks then decrease to 37.5 mg daily for 2 weeks then stop. - Stop Clonazepam, as the patient reports he is no longer taking it. - continue Atomoxetine HCL 40 mg daily. - continue Amphetamine-Dext roamphetamin ER 30 mg daily. - Continue Vraylar 6 mg daily. - Continue Lamotrigine 100 mg daily. 08/08/2024 Adult ADHD (ICD-10 - F90.9) Patient had reduction in suicidal ideation and/or behavior upon follow-up assessment within 120 days of index assessment (M1357) 1. ADHD Evaluation and Management - Plan: Continue amphetamine-dext roamphetamine 30 mg and atomoxetine. [facility] for a controlled substance prescription. Monitor the patient's response to medication and any side effects. The patient reports having about two weeks of ADHD medication left. 2. Borderline Autism Management - Plan: Continue current management strategies. Monitor the patient's response to treatment and any side effects. 3. Anxiety Management - Plan: Taper clonazepam as tolerated and initiate propranolol up to three times a day as needed for anxiety. Monitor the patient's response to treatment and any side effects. The patient reports significant anxiety, especially in social situations. 4. Depression Management - Plan: Taper venlafaxine from 150 mg to 75 mg for two weeks, then initiate escitalopram 2.5 mg for two weeks before reevaluation. Monitor the patient's response to treatment and any side effects. The patient rates their depression at 5-6 out of 10. 5. Labs and Follow-up Coordination - Plan: Order blood work at [facility]. Schedule a follow-up appointment in two weeks to adjust venlafaxine and escitalopram dosages. 6. Safety and Suicide Risk Assessment - Plan: Assess for suicidal ideation and intent. Ensure that firearms are locked and ammunition is stored separately. Encourage continued counseling and support. The patient reports chronic suicidal thoughts but no current plan or intent. safety plan in place. pt aware of 988 crisis number. 09/17/2024 Adult ADHD (ICD-10 - F90.9) 08/16/2024 Insomnia due to mental condition (ICD-10 - F51.05) Assessment and Plan: 1. Major Depressive Disorder: - He rates depression at 10. - Continue Lamotrigine 100 mg, Vraylar 6 mg, and Venlafaxine 75 mg. - Increase escitalopram to 5 mg daily. - Taper Venlafaxine to 37.5 mg after 2 weeks until the follow-up appointment. 2. Generalized Anxiety Disorder: - He rates anxiety at -09/05. - increase propranolol to 20 mg TID PRN. - Start BuSpar; monitor for effectiveness at the follow-up appointment. - Encourage grounding techniques for intrusive thoughts, such as holding an ice cube and focusing on sensory experiences. 3. Attention Deficit Hyperactivity Disorder: - Refill atomoxetine 40 mg. - Refill amphetamine/dext roamphetamine for 30 days. - He reports feeling behind in school and having difficulty with executive function. 4. Insomnia: - He reports broken sleep, totaling approximately 4.5 hours per night. - Recommend melatonin 5 mg at bedtime, with an additional dose if waking up during the night. - Suggest magnesium 200-300 mg at bedtime to improve REM sleep. 5. Education and Support: - Discuss the importance of sleep hygiene and stress management techniques to improve overall mental health. - He expresses frustration with masking symptoms and difficulty finding consistent care. 6. Medication management - increase propranolol to 20 mg TID PRN. - Start BuSpar 5 mg BID - increase Escitalopram to 5 mg daily. - Continue Venlafaxine 75 mg daily for 2 weeks then decrease to 37.5 mg daily for 2 weeks then stop. - Stop Clonazepam, as the patient reports he is no longer taking it. - continue Atomoxetine HCL 40 mg daily. - continue Amphetamine-Dext roamphetamin ER 30 mg daily. - Continue Vraylar 6 mg daily. - Continue Lamotrigine 100 mg daily. 11/11/2024 Adult ADHD (ICD-10 - F90.9) 09/17/2024 Insomnia due to mental condition (ICD-10 - F51.05) 11/11/2024 Insomnia due to mental condition (ICD-10 - F51.05) 08/08/2024 Other Learning About Depression Screening material was printed Patient had reduction in suicidal ideation and/or behavior upon follow-up assessment within 120 days of index assessment (M1357) 1. ADHD Evaluation and Management - Plan: Continue amphetamine-dext roamphetamine 30 mg and atomoxetine. [facility] an [facility] provider for a controlled substance prescription. Monitor the patient's response to medication and any side effects. The patient reports having about two weeks of ADHD medication left. 2. Borderline Autism Management - Plan: Continue current management strategies. Monitor the patient's response to treatment and any side effects. 3. Anxiety Management - Plan: Taper clonazepam as tolerated and initiate propranolol up to three times a day as needed for anxiety. Monitor the patient's response to treatment and any side effects. The patient reports significant anxiety, especially in social situations. 4. Depression Management - Plan: Taper venlafaxine from 150 mg to 75 mg for two weeks, then initiate escitalopram 2.5 mg for two weeks before reevaluation. Monitor the patient's response to treatment and any side effects. The patient rates their depression at 5-6 out of 10. 5. Labs and Follow-up Coordination - Plan: Order blood work at [facility]. Schedule a follow-up appointment in two weeks to adjust venlafaxine and escitalopram dosages. 6. Safety and Suicide Risk Assessment - Plan: Assess for suicidal ideation and intent. Ensure that firearms are locked and ammunition is stored separately. Encourage continued counseling and support. The patient reports chronic suicidal thoughts but no current plan or intent. safety plan in place. pt aware of 988 crisis number. 08/16/2024 Other Assessment and plan reviewed with patient Discussed medication side effects. Discussed the risks/benefits of this medication. Treatment options reviewed. Call for problems with medication, side effects or need for dosage change. discussed when to seek emergency services. [facility] with any concerns about treatment if needed before scheduled follow up. Assessment and Plan: 1. Major Depressive Disorder: - He rates depression at 06/05. - Continue Lamotrigine 100 mg, Vraylar 6 mg, and Venlafaxine 75 mg. - Increase escitalopram to 5 mg daily. - Taper Venlafaxine to 37.5 mg after 2 weeks until the follow-up appointment. 2. Generalized Anxiety Disorder: - He rates anxiety at -09/05. - increase propranolol to 20 mg TID PRN. - Start BuSpar; monitor for effectiveness at the follow-up appointment. - Encourage grounding techniques for intrusive thoughts, such as holding an ice cube and focusing on sensory experiences. 3. Attention Deficit Hyperactivity Disorder: - Refill atomoxetine 40 mg. - Refill amphetamine/dext roamphetamine for 30 days. - He reports feeling behind in school and having difficulty with executive function. 4. Insomnia: - He reports broken sleep, totaling approximately 4.5 hours per night. - Recommend melatonin 5 mg at bedtime, with an additional dose if waking up during the night. - Suggest magnesium 200-300 mg at bedtime to improve REM sleep. 5. Education and Support: - Discuss the importance of sleep hygiene and stress management techniques to improve overall mental health. - He expresses frustration with masking symptoms and difficulty finding consistent care. 6. Medication management - increase propranolol to 20 mg TID PRN. - Start BuSpar 5 mg BID - increase Escitalopram to 5 mg daily. - Continue Venlafaxine 75 mg daily for 2 weeks then decrease to 37.5 mg daily for 2 weeks then stop. - Stop Clonazepam, as the patient reports he is no longer taking it. - continue Atomoxetine HCL 40 mg daily. - continue Amphetamine-Dext roamphetamin ER 30 mg daily. - Continue Vraylar 6 mg daily. - Continue Lamotrigine 100 mg daily. 09/17/2024 Other Increase lexapro to 10mg daily, previously was up to 20mg daily. Patient educated on all medications including potential benefits, side effects, risks. Educated on proper dosing schedule and importance of compliance. [place] PDMP report checked and consistent with prescription history, no controlled substance prescriptions from other providers. Continue Adderall for now, discussed controlled substance policy with cannabis use, will do UDT next apt. 11/11/2024 Other Discussed controlled stubstance policy, continues to utilize cannabis for pain. Discontinue Adderall. Increase atomoxetine to 80mg daily for ADHD management Increase escitalopram to 20mg daily for mood, anxiety Patient educated on all medications including potential benefits, side effects, risks. Educated on proper dosing schedule and importance of compliance. Encouraged to return to counseling -Assessment and treatment plan reviewed with patient. -Compliance with treatment plan importance discussed. -Discussed the risks/benefits of this medication -Discussed medication side effects. -Contact office if symptoms worsen. -Discussed that it can take up to 6-8 weeks to see full therapeutic effects of psychotropic medications. -Crisis prevention hotline 989. Plan Of Treatment Pending Test Test Name Order Date Vitamin D, 1,25 Dihydroxy 08/08/2024 TSH+Free T4 08/08/2024 Liver Function Test (LFT) 08/08/2024 LIPID PANEL, STANDARD (7600) 08/08/2024 COMPREHENSIVE METABOLIC PANEL (16566) CBC (H/H, RBC, INDICES, WBC, PLT) (1759) 08/08/2024 HEMOGLOBIN A1c (496) 08/08/2024 VITAMIN B12 (927) 08/08/2024 UDT 08/08/2024 Insurance Providers Payer Name Payer Address Payer Phone Subscriber Number Group Number Insured Name Patient Relationship to Insured Coverage Start Date Coverage End Date Medicare-I l Medicare [address] [place] [phone] [id number] Wayne Carter Self - patient is the insured Medical (General) History Medical History History ICD Code TBI Hypothyroidism Back disorder Past Psychiatric History: Anxiety Disord er,Phobias,PTSD,Bipolar Disorder abdominal aortic aneurysm: No atrial fibrillation: No chronic fatigue syndrome: Yes essential tremor: No hyperlipidemia: No hypertension: No Parkinson's disease: No restless leg syndrome: Yes stroke: No subdural hematoma: No type 1 diabetes mellitus: No type 2 diabetes mellitus: No vitamin B12 deficiency: Yes vitamin D deficiency: Yes
[2025-06-23 15:44] VITALS: BP 128/80; PULSE 76; RESP 18; TEMP 36.3; O2SAT 97
== END 2025-06-23 16:05 | disposition home or self-care (01) ==
PROVIDERS: Emergency Provider Nurse Practitioner; PCP Nurse Practitioner Family
DX: T63.461A Toxic effect of venom of wasps, accidental (unintentional), initial encounter (principal); E03.9 Hypothyroidism, unspecified; Z98.84 Bariatric surgery status
CPT/HCPCS: 99213; G0463

== ENCOUNTER 2025-07-30 17:50 | Emergency (ER) | payer OTHER, MEDICARE, SELFPAY ==
--- OUTSIDE RECORDS SUMMARY | 2025-07-30 17:53 | XMS_ITS | Clinical Summary ---
Author Organization [facility] Address [address] [place] [id number] Care Team Providers Care Crowd Controller Name Role Phone Jeannine Maloney NP Primary Care Provider [phone] Allergies Active Allergy Reactions Criticality Noted Date [...] every 4 (four) hours 03/29/20 24 Active gabapentin (NEURONTIN) 300 mg capsule Take [...] mg total) by mouth daily 60 capsule 07/18/20 25 Active testosterone cypionate (DEPO-TESTOTERONE) 200 mg/mL injection Inject 0.5 mL (100 mg total) into the muscle as instructed every 7 days 10 mL 2 07/22/20 25 025 Active syringe with needle 3 mL 22 x 1 1/2 syringe Use weekly with testosterone injection 12 each 4 07/22/20 25 Active testosterone cypionate (DEPO-TESTOTERONE) 200 mg/mL injection Inject 1 mL (200 mg total) into the muscle as instructed every 7 days 07/05/20 22 025 Discontin ued(Reord er) dextroamphetamine- amphetamine XR (Adderall XR) 30 mg 24 hr capsule Take 2 capsules (60 mg total) by mouth daily 60 capsule 06/16/20 25 025 Discontin ued(Reord er) Active Problems Problem Noted Date Diagnosed Date [...] years. Assessment & Plan (10/19/2024 8:53 PM BED AND BREAKFAST INNKEEPER): BMI Follow-up includes: education provided. Medicare annual wellness visit, subsequent 10/14 Assessment & Plan (12/02/2024 3:51 PM BED AND BREAKFAST INNKEEPER): -Recommended: Healthy diet. Avoiding junk food/fast food. [...] needed Assessment & Plan (10/14/2024 8:54 PM BED AND BREAKFAST INNKEEPER): Patient Counseling: --Nutrition: Stressed importance of moderation [...] 10/14/2024 Assessment & Plan (12/02/2024 3:53 PM BED AND BREAKFAST INNKEEPER): Has never been stable. Currently on lamictal, vraylar, escitalopram, will continue current medication. Refer to new psychiatrist Assessment & Plan (10/16/2024 12:48 PM BED AND BREAKFAST INNKEEPER): Active. Is seeing psychiatry. Emotionally labile. Lumbosacral spondylosis without myelopathy 09/09 Spondylosis of lumbar region without myelopathy or radiculopathy 07/19/2024 Lumbar post-laminectomy syndrome 07/19/2024 Assessment & Plan (10/14/2024 8:51 PM BED AND BREAKFAST INNKEEPER): Chronic, worsening problem: Has documented MRI and history of trauma to his back. I called [facility] and we did not refer him so they would not give out information over the phone. We did get a consent signed to obtain information from them before visit ended. I called patient's pharmacy and they only had one prescription on file from [facility] and that was the baclofen. I discussed this with Seven. I agreed to prescribe the tramadol at two tablets daily. I asked him to sign an opioid agreement. I asked him to follow up in 1 month for recheck. I checked their [place] ENROUTE CONTROLLER sheet, and it was consistent with prescribed medications. Getwwd-yz-htas transgender person 07/11/2024 Assessment & Plan (05/28/2025 8:41 AM CDT): Orders: Total testosterone; Future Assessment & Plan (12/02/2024 3:50 PM BED AND BREAKFAST INNKEEPER): Check testosterone level. Assessment & Plan (07/11/2024 2:21 PM CDT): On testosterone therapy. Acquired hypothyroidism 07/11/2024 Assessment & Plan (05/28/2025 8:41 AM CDT): Orders: Thyroid Function [place]; Future CBC with auto differential; Future Assessment & Plan (12/02/2024 3:50 PM BED AND BREAKFAST INNKEEPER): Check TSH today. Continue current medication. . [...] He did call his previous psychiatrist in [place] during our visit. Assessment & Plan (12/02/2024 3:48 PM BED AND BREAKFAST INNKEEPER): Will take over ADHD medication until he [...] (07/11/2024): Added automatically from request for surgery [id number] Assessment & Plan (07/11/2024 8:11 PM CDT): [...] 07/12/2019 Assessment & Plan (12/02/2024 3:50 PM BED AND BREAKFAST INNKEEPER): History of TBI. Has a lot of PTSD from incident and emotional lability. Will try to refer back to neurology at [facility]. 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 Emotionally labile. Tearful, angry and [...] On multiple psychiatric medications. [place]. Spinal stenosis of lumbar region 02/26/2018 Assessment & Plan (07/11/2024 8:10 PM CDT): Since injury. Has had surgery. On gabapentin 900mg tid. Has had recent MRI. Will refer to pain management a little closer since he has not heard from [facility] referral. Posttraumatic stress disorder 12/17/2015 Overview (04/12/2024): -previous psychiatrist in [place] prescribing: cariprazine 6mg, clonazepam 1mg two to three times a day, three if having a panic attack, adderall 60mg, lamotrigine 300mg, venlafaxine 150mg tablet -recently switched to venlafaxine from citalopram -he cannot explain anxiety -a lot going on with recent move to [facility] -also with mixed bipolar and PTSD Refilled venlafaxine today, provided psych resources and same day access center. Assessment & Plan (12/02/2024 3:46 PM BED AND BREAKFAST INNKEEPER): I will take over medications while we refer to new psychiatrist in [place]. However, I told him that he has now refused to go back to a couple of different psychiatrist. Pt recalls only one, the recent Stripping Machine Operator at [facility]. However, review of chart and [place] ENROUTE CONTROLLER revieals that he has gone to see [facility] for psychiatrist last year. He wasn't happy with them either. We discussed that he has to trust somone. Assessment & Plan (08/08/2024 11:36 AM CDT): [facility] in [place] for their walk-in clinic today. I believe they can help them with their immediate needs. However I told them if they run into road blocks I would be willing to prescribe short-term medications that he has been stable on until they finding more local psychiatrist. Addendum: Patient did go to [facility] walk in clinic. She was able to see him today and refill medication. She was not able to do controlled medication. After talking to the RESIDENCY PROGRAM COORDINATOR via phone I did refill his clonazepam [...] Encounters Date Type Department Care Team Description 07/22/2025 8:00 AM CDT Telemedicine [facility] Primary Care at [address] [phone] Jeannine Maloney NP Vuodrt-lv-fota transgender person (Primary Dx) 07/21/2025 Results Follow-Up [facility] Primary Care at [address] [phone] Jeannine Maloney NP Thyroid Function [place], Lipid panel, Comprehensive metabolic panel, Additional followed-up results: 4 07/18/2025 1:30 PM CDT Lab [address] [address] Acquired hypothyroidism; Lipid screening; Severe major depression, single episode, without psychotic features (HCC); Vvpshu-zn-yaim transgender person 05/28/2025 8:00 AM CDT Office Visit [facility] Primary Care at [address] [phone] Jeannine Maloney NP Acquired hypothyroidism (Primary Dx); Severe major depression, single episode, without psychotic features (HCC); Lipid screening; Hhxobi-hk-uptj transgender person; Non-recurrent acute suppurative otitis media of left ear without spontaneous rupture of tympanic membrane; Morbid obesity with BMI of 40.0-44.9, adult (HCC); RLS (restless legs syndrome) 05/13/2025 Orders Only [facility] Primary Care at [address] [phone] Jeannine Maloney NP 05/13/2025 Orders Only [facility] Primary Care at [address] [phone] Jeannine Maloney, RESIDENCY PROGRAM COORDINATOR Gastric reflux from Last 3 Months Immunizations [...] surgery status Adhd TBI (traumatic brain injury) ([facility]) History of left knee replacement Back pain [...] CDT Inhaled Oxygen Concentration - - Weight 107.5 kg (237 lb) 07/22/2025 8:06 AM CDT Height 165.1 cm (5' 5) 05/28/2025 8:05 AM CDT Body Mass Index 39.44 05/28/2025 8:05 AM CDT Plan of Treatment Health Maintenance Due Date Last Done Comments Breast Cancer Screening-Mammogram 1970 Cervical Cancer Screening 1970 Colon Cancer Screening-Colonoscopy 1970 Pneumococcal vaccine <65 (1 of 2 - PCV) 1989 Zoster Vaccine (2 of 2) 12/07/2022 10/12/2022 Influenza Vaccine (#1) 2025 4, 07/30/2024, 08/11/2023, Additional history exists Regular Well Visit/Exam 18-64 11/28/2025 11/28/2024, 10/14/2024 Depression Screening 05/28/2026 05/28/2025, 11/28/2024, 10/14/2024, Additional history exists DTaP/Tdap/Td Vaccine (3 - Td or Tdap) 08/11/2033 08/11/2023, 04/28/2013 Hepatitis B Screening Completed 12/25/2023 Covid-19 Vaccine Completed 07/30/2024, , 03/11/2022, Additional history exists Hepatitis C Screening Completed 09/11/2024 Procedures Procedure Name Priority Date/Time Associated Diagnosis Comments EGFR Routine 07/18/2025 1:40 PM CDT Severe major depression, single episode, without psychotic features (HCC) DIFFERENTIAL AUTO Routine 07/18/2025 1:4 0 PM CDT Acquired hypothyroidism TOTAL TESTOSTERONE Routine 07/18/2025 1: 40 PM CDT Lkfazj-fr-iput transgender person CBC WITH AUTO DIFFERENTIAL Routine 07/18/2025 1:40 PM CDT Acquired hypothyroidism COMPREHENSIVE METABOLIC PANEL Routine 07/18/2025 1:40 PM CDT Severe major depression, single episode, without psychotic features (HCC) LIPID PANEL Routine 07/18/2025 1:40 PM CDT Lipid screening THYROID FUNCTION CASCADE Routine 07/18/2025 1:40 PM CDT Acquired hypothyroidism HEPATITIS C ANTIBODY Routine 09/11/2024 4:10 PM CDT Encounter for hepatitis C screening test for low risk patient from Last 3 Months or Most Recently Relevant to Health Maintenance Results * eGFR (07/18/2025 1:40 PM CDT) eGFR 74 >=60 mL/min/1. 73 m2 Comment: Interpretive Data Reference Interval Normal >/= 90 mL/min/1.73m2 Mildly decreased* 60 - 89 mL/min/1.73m2 Mildly to moderately decreased 45 - 59 mL/min/1.73m2 Moderately to severely decreased 30 - 44 mL/min/1.73m2 Severely decreased 15 - 29 mL/min/1.73m2 Kidney Failure < 15 mL/min/1.73m2 *Relative to young adult level Estimated glomerular filtration rate is determined by the 2020 CKD-EPI equation recommended by the National Kidney Foundation (A Unifying Approach to GFR Estimation: Recommendations of the NKF-ASK Task Force on Reassessing the Inclusion of Race in Diagnosing Kidney Disease, JASN 2020). The CKD-EPI equation should not be used for patients with unstable renal function and has not been validated in children and those over 70. Current interpretive data was last reviewed 2021. Blood 07/18/2025 1:40 PM CDT 07/18/2025 5:49 PM CDT Jeannine Maloney NP LAB BLOOD ORDERABLES Final Re sult [facility] [address] [facility] [facility] [place] [address] * Differential, auto (07/18/2025 1:40 PM CDT) Neutrophil abs 4.07 1.50 - 6.50 K/cumm Imm gran abs 0.01 0.00 - 0.10 K/cumm [facility] Lymphocyte abs 1.20 0.80 - 3.30 K/cumm [facility] Monocyte abs 0.54 0.20 - 0.80 K/cumm [facility] Eosinophil abs 0.13 0.00 - 0.50 K/cumm [facility] Basophil abs 0.05 0.00 - 0.10 K/cumm [facility] Neutrophil pct 67.8 % [facility] Comment: Interpretive Data Percent cell count reference ranges are not reported, since discordance with absolute values may lead to misinterpretation of CBC data. Current Interpretive Data was last revised on 2018. Imm gran pct 0.2 % [facility] Comment: Interpretive Data Percent cell count reference ranges are not reported, since discordance with absolute values may lead to misinterpretation of CBC data. Current Interpretive Data was last revised on 2018. Lymphocyte pct 20.0 % [facility] Comment: Interpretive Data Percent cell count reference ranges are not reported, since discordance with absolute values may lead to misinterpretation of CBC data. Current Interpretive Data was last revised on 2018. Monocyte pct 9.0 % [facility] Comment: Interpretive Data Percent cell count reference ranges are not reported, since discordance with absolute values may lead to misinterpretation of CBC data. Current Interpretive Data was last revised on 2018. Eosinophil pct 2.2 % [facility] Comment: Interpretive Data Percent cell count reference ranges are not reported, since discordance with absolute values may lead to misinterpretation of CBC data. Current Interpretive Data was last revised on 2018. Basophil pct 0.8 % [facility] Comment: Interpretive Data Percent cell count reference ranges are not reported, since discordance with absolute values may lead to misinterpretation of CBC data. Current Interpretive Data was last revised on 2018. Blood 07/18/2025 1:40 PM CDT 07/18/2025 5:49 PM CDT Jeannine Maloney NP LAB BLOOD ORDERABLES Final Re sult Performing Organization Address [facility] de Phone Number [address] [address] * Thyroid Function [place] (07/18/2025 1:40 PM CDT) [facility] TSH 1.73 0.30 - 4.20 mcIUnit/mL Blood 07/18/2025 1:40 PM CDT 07/18/2025 5:49 PM CDT Jeannine Maloney NP LAB BLOOD ORDERABLES Final Re sult Performing Organization Address [facility] Co de Phone Number [address] [address] * (ABNORMAL) CBC with auto differential (07/18/2025 1:40 PM CDT) [facility] WBC 6.00 3.80 - 9.90 K/cumm Hgb 15.6(H) 11.9 - 15.5 g/dL [facility] Hct 49.2(H) 35.6 - 45.5 % [facility] Plt 299 150 - 400 K/cumm [facility] MPV 9.4 9.1 - 12.3 fL [facility] RBC 5.11 3.90 - 5.20 M/cumm [facility] MCV 96.3 81.3 - 96.4 fL [facility] MCH 30.5 27.1 - 33.3 pg [facility] MCHC 31.7(L) 32.3 - 35.7 g/dL [facility] RDW CV 14.0 11.1 - 14.9 % [facility] RDW SD 50.2(H) 35.7 - 48.1 fL [facility] NRBC abs 0.00 0.00 - 0.01 K/cumm [facility] Blood 07/18/2025 1:40 PM CDT 07/18/2025 5:49 PM CDT Jeannine Maloney NP LAB BLOOD ORDERABLES Final Re sult Performing Organization Address [facility] Co de Phone Number [address] [place] [address] * (ABNORMAL) Total testosterone (07/18/2025 1:40 PM CDT) Pathologist [facility] Testosterone 656.00(H) 2.90 - 40.80 ng/dL Blood 07/18/2025 1:40 PM CDT 07/18/2025 5:49 PM CDT Jeannine Maloney NP LAB BLOOD ORDERABLES Final Re sult Performing Organization Address City/[facility]/ZIP Co de Phone Number [address] [place], [place] [phone] * (ABNORMAL) Lipid panel (07/18/2025 1:40 PM CDT) Pathologist [facility] Cholesterol 180 30 - 199 mg/dL Comment: Interpretive Data Ages < or = 19 years Acceptable: <170 mg/dL Borderline high: 170-199 mg/dL High: >or= 200 mg/dL Ages > or = 20 years Desirable: <200 mg/dL Borderline high: 200-239 mg/dL High: >or= 240 mg/dL Literature References: 1. Expert Panel on Integrated Guidelines for Cardiovascular Health and Risk Reduction in Children and Adolescents. Pediatrics 2011;128:S213 2. NCEP Expert Panel. Circulation 2004;110:227 Current Interpretive Data was last revised on 2018. Triglycerides 84 <=149 mg/dL [facility] Comment: Interpretive Data Ages < or = 9 years Acceptable: <75 mg/dL Borderline high: 75-99 mg/dL High: >or= 100 mg/dL Ages 10 to 20 years Acceptable: <90 mg/dL Borderline high: 90-129 mg/dL High: >or= 130 mg/dL Ages > or = 20 years Desirable: <150 mg/dL Borderline high: 150-199 mg/dL High: 200-499 mg/dL Very high: >or= 499 mg/dL Literature References: 1. Expert Panel on Integrated Guidelines for Cardiovascular Health and Risk Reduction in Children and Adolescents. Pediatrics 2011;128:S213 2. NCEP Expert Panel. Circulation 2004;110:227 Current Interpretive Data was last revised on 2018. HDL 37(L) >=40 mg/dL [facility] Comment: Interpretive Data Ages < or = 19 years Acceptable: >45 mg/dL Borderline low: 40-45 mg/dL Low: <40 mg/dL Ages > or = 20 years Desirable: >or= 60 mg/dL Low: <40 mg/dL Literature References: 1. Expert Panel on Integrated Guidelines for Cardiovascular Health and Risk Reduction in Children and Adolescents. Pediatrics 2011;128:S213 2. NCEP Expert Panel. Circulation 2004;110:227 Current Interpretive Data was last revised on 2018. LDL, calculated 127 <=129 mg/dL [facility] Comment: Interpretive Data Ages < or = 19 years Acceptable: <110 mg/dL Borderline high: 110-129 mg/dL High: >or= 130 mg/dL Ages > or = 20 years Optimal: <100 mg/dL Near optimal: 100-129 mg/dL Borderline high: 130-159 mg/dL High: >160 mg/dL Calculated using the Sutherland LDL-C estimating equation. This equation was implemented on 2024. Prior to this date LDL-C was estimated using the Friedewald equation. Literature References: 1. Expert Panel on Integrated Guidelines for Cardiovascular Health and Risk Reduction in Children and Adolescents. Pediatrics 2011;128:S213 2. NCEP Expert Panel. Circulation 2004;110:227 3. Koko M et al. EMY Cardiol. 2020 March 27;5(5):540-548. doi: 10.1001/jamacardio.2020.0013 Current Interpretive Data was last revised on 2024. Non-HDL Cholesterol 143 mg/dL [facility] Comment: Interpretive Data Ages < or = 19 years Acceptable: <120 mg/dL Borderline high: 120-144 mg/dL High: >145 mg/dL Ages > or = 20 years When triglycerides are >200 mg/dL, Non-HDL cholesterol is a secondary target of therapy with treatment goals that are 30 mg/dL greater than the LDL cholesterol target. Literature References: 1. Expert Panel on Integrated Guidelines for Cardiovascular Health and Risk Reduction in Children and Adolescents. Pediatrics 2011;128:S213 2. NCEP Expert Panel. Circulation 2004;110:227 Current Interpretive Data was last revised on 2018. Chol/HDL ratio 5 [facility] Blood 07/18/2025 1:40 PM CDT 07/18/2025 5:49 PM CDT Jeannine Maloney NP LAB BLOOD ORDERABLES Final Re sult [facility] [address] [facility] [place] [address] * Comprehensive metabolic panel (07/18/2025 1:40 PM CDT) [facility] Sodium 141 135 - 145 mmol/L Potassium, pl 4.9 3.3 - 4.9 mmol/L [facility] Chloride 104 97 - 110 mmol/L [facility] CO2 27 22 - 32 mmol/L [facility] Anion gap 10 2 - 15 mmol/L [facility] BUN 14 6 - 25 mg/dL [facility] Creatinine 0.92 0.60 - 1.10 mg/dL [facility] Glucose 111 70 - 199 mg/dL [facility] Comment: Interpretive Data Fasting glucose >/= 126 mg/dl is diagnostic for diabetes. Fasting is defined as no caloric intake for at least 8 hours. Fasting glucose between 100 mg/dl to 125 mg/dl is diagnostic of prediabetes. In a patient with classic symptoms of hyperglycemia or hyperglycemic crisis, a random glucose >/= 200 mg/dl is diagnostic for diabetes. In the absence of unequivocal hyperglycemia, results should be confirmed by repeat testing. The classification and Diagnosis of Diabetes Diabetes Care 2021; 46: S19-S40. Current interpretive data was last revised 2022. Calcium 10.0 8.5 - 10.3 mg/dL [facility] Bilirubin, total 0.3 0.1 - 1.2 mg/dL [facility] Protein, pl 6.5 6.5 - 8.5 g/dL [facility] Albumin 4.1 3.5 - 5.0 g/dL [facility] Alk phos 121 40 - 130 Units/L [facility] ALT 18 7 - 45 Units/L [facility] AST 38 10 - 45 Units/L [facility] Blood 07/18/2025 1:40 PM CDT 07/18/2025 5:49 PM CDT us Jeannine Maloney NP LAB BLOOD ORDERABLES Final Re sult [facility] [address] [facility] [facility] [place] [address] * Hepatitis C antibody Blood (09/11/2024 4:10 PM CDT) Pathologist [facility] Hep C Ab Nonreactive Nonreactive Comment: Interpretive [...] MICROBIOLOGY - GENERAL OR DERABLES Final Result [facility] [address] [facility] Department [place] [address] from Last 3 Months or Most Recently Relevant to Health Maintenance Insurance MEDICARE MEDICARE [facility] CHOICE PLUS Care Teams Crowd Controller Relationship Specialty Start Date End Date Jeannine Maloney NP [address] [facility] [facility] [address] [place] [address] PCP - General Family Medicine 11/21/24
--- OUTSIDE RECORDS SUMMARY | 2025-07-30 17:53 | XMS_ITS | Patient Health Record ---
Author Organization [facility] [employer] Address [address] [facility] [address] [place] [address] Care Team Providers Care Manager User Experience Name Role Phone Amara GARBER, Jeannine Primary Care Provider Unavailab Brook Cheatham Unavailable [phone] Barb Mancera Unavailable [phone] Buck Du Unavailable [phone] Allergies No Known Allergies Reason For Referral No Information Medications Medication SIG (Take, Route, Frequency, Duration) Notes Start Date End Date Status Pantoprazole Sodium 40 MG Tablet Delayed Release TAKE 1 TABLET BY MOUTH DAILY Oral; Duration: 90 Days Unknown Atomoxetine HCl 80 MG Capsule 1 capsule in the morning Orally Once a day; Duration: 90 days Active lamoTRIgine 100 MG Tablet Disintegrating 1 tablet on the tongue and allow to dissolve Oral twice a day; Duration: 90 days Active Escitalopram Oxalate 20 MG Tablet 1 tablet Orally Once a day; Duration: 90 days Active Levothyroxine Sodium 100 MCG Tablet TAKE 1 TABLET BY MOUTH DAILY BEFORE BREAKFAST Oral; Duration: 90 Days Unknown Ventolin HFA 108 (90 Base) MCG/ACT Aerosol Solution 1 puff as needed Inhalation every 4 hrs Unknown Testosterone Cypionate 200 MG/ML Solution INJECT 0.7 ML IN THE MUSCLE WEEKLY Intramuscular; Duration: 49 Days Unknown Propranolol HCl 10 MG Tablet 1 tablet Orally Three times a day; Duration: 30 days As needed Active Vraylar 6 MG Capsule 1 capsule Orally On ce a day; Duration: 90 days Active Escitalopram Oxalate 10 MG Tablet 1 tablet Orally Once a day; Duration: 90 days Active Amphetamine-Dextroamphet ER 30 MG Capsule Extended Release 24 Hour 2 capsule in the morning Orally Once a day; Duration: 30 days 10/02/2024 Active Gabapentin 300 MG Capsule 1 capsule Oral ly three times a day Unknown Social History Tobacco Use: Social History Observation Description Date Details (start date - stop date) Never Smoker NA - NA Sex Assigned At : Social History Observation Description Sex Assigned At Female Social History Miscellaneous: Social Info Question Answer Notes Safety issues: Are there any firearms in the house? No Social History Social Info Question Answer Notes Household: Marital Status: Number of Adults in household: 2 Number of Children in Household: 0 Level of Education: Professional Schools/Masters /PhD Household: Social Info Question Answer Notes Household Marital status: Drug/Alcohol: Social Info Question Answer Notes Drugs Have you used drugs other than those for medical reasons in the past 12 months? No AUDIT-C (Standard) Did you have a drink containing alcohol in the past year? No Tobacco Use: Social Info Question Answer Notes Tobacco Control (Standard) Tobacco use: Nonsmoker Additional Details Category Social Info Options Details Miscellaneous: Occupation: [employer] Problems Problem Type SNOMED Code ICD Code Onset Dates Problem Status W/U Status Risk Notes Problem Generalized anxiety disorder (55543888) RAEGAN (generalized anxiety disorder) (F41.1) Active confirmed Problem Attention deficit hyperactivity disorder (422109614) Adult ADHD (F90.9) Active confirmed Problem Severe major depression, single episode, without psychotic features (84162105) MDD (major depressive disorder), severe (F32.2) Active confirmed Problem Insomnia disorder related to another mental disorder (11714814) 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) Active confirmed Vital Signs Heart Rate 83 /min 08/16/2024 Blood pressure diastolic 95 mm Hg 08/16/2024 Weight-kg 119.84 kg 08/16/2024 Blood pressure systolic 132 mm Hg 08/16/2024 Weight 264.2 lbs 08/16/2024 Encounters Encounter Location Date Provider Diagnosis [facility] [facility] [address] [place] [address] 08/08/2024 Buck Clubb RAEGAN (generalized anxiety disorder) F41.1 ; MDD (major depressive disorder), severe F32.2 and Adult ADHD F90.9 [employer] [facility] [address] [facility] [address] [place] [address] 08/16/2024 Buck Clubb RAEGAN (generalized anxiety disorder) F41.1 ; MDD (major depressive disorder), severe F32.2 ; Adult ADHD F90.9 and Insomnia due to mental condition F51.05 [facility] [address] [address] [place] [address] 09/17/2024 Brookarnie Pendleton RAEGAN (generalized anxiety disorder) F41.1 ; MDD (major depressive disorder), severe F32.2 ; Adult ADHD F90.9 and Insomnia due to mental condition F51.05 [facility] [address] [place] [address] 10/21/2024 Barb Hemann Adult ADHD F90.9 ; MDD (major depressive disorder), severe F32.2 and RAEGAN (generalized anxiety disorder) F41.1 [facility] [address] [place] [address] 11/11/2024 Brook Pendleton RAEGAN (generalized anxiety disorder) F41.1 ; MDD (major depressive disorder), severe F32.2 ; Adult ADHD F90.9 and Insomnia due to mental condition F51.05 [facility] [address] [place] [address] 06/06/2025 Brook Pendleton [facility], [facility] [address] [place] [address] 06/17/2025 Brook Pendleton [facility] [address] [place] [address] 07/18/2025 Brook Pendleton [facility] [address] [place] [address] 08/08/2024 [facility], [facility] [address] [place] [address] 09/17/2024 Brook Pendleton [facility] [address] [place] [address] 09/18/2024 [facility], [facility] [address] [place] [address] 09/19/2024 [facility] [address] [place] [address] 10/02/2024 Brook Pendleton Adult ADHD F90.9 [facility] [address] [place] [address] 10/02/2024 Brook Pendleton [facility] [address] [place] [address] 11/21/2024 Brook Pendleton MDD (major depressive disorder), [...] Coordination - Plan: Order blood work at [facility] Schedule a follow-up appointment in two weeks [...] and atomoxetine. [facility] for a controlled substance prescription. Monitor [...] Coordination - Plan: Order blood work at [facility] Schedule a follow-up appointment in two weeks [...] Depressive Disorder: - He rates depression at 7/10. - Continue Lamotrigine 100 mg, Vraylar 6 mg, and Venlafaxine 75 mg. - Increase escitalopram to 5 mg daily. - Taper Venlafaxine to 37.5 mg after 2 weeks until the follow-up appointment. 2. Generalized Anxiety Disorder: - He rates anxiety at 9-10/10. - increase propranolol to 20 mg TID [...] Coordination - Plan: Order blood work at [facility] Schedule a follow-up appointment in two weeks [...] and atomoxetine. [facility] for a controlled substance prescription. Monitor [...] Coordination - Plan: Order blood work at [facility] Schedule a follow-up appointment in two weeks [...] effects of psychotropic medications. -Crisis prevention hotline 578. Plan Of Treatment Pending Test Test Name Order Date Vitamin D, 1,25 Dihydroxy 08/08/2024 TSH+Free T4 08/08/2024 Liver Function Test (LFT) 08/08/2024 LIPID PANEL, STANDARD (7600) 08/08/2024 COMPREHENSIVE METABOLIC PANEL (09727) CBC (H/H, RBC, INDICES, WBC, PLT) (1759) 08/08/2024 HEMOGLOBIN A1c (496) 08/08/2024 VITAMIN B12 (927) 08/08/2024 UDT 08/08/2024 Insurance Providers Payer Name Payer Address Payer Phone Subscriber Number Group Number Insured Name Patient Relationship to Insured Coverage Start Date Coverage End Date Medicare-I l Medicare [address] [place] [id number] Wing Carter Self - patient is the insured [...]
--- OUTSIDE RECORDS SUMMARY | 2025-07-30 17:53 | XMS_ITS | Encounter Summary ---
Author Organization [facility] Healthcare Address [address] [place] [address] Care Team Providers Care Natural [employer] Trader Name Role Phone Jeannine Maloney NP Primary Care Provider [phone] Encounter Details Date Type Department Care Team (Latest Contact Info) Description 07/21/2025 Results Follow-Up [facility] Primary Care at [address] [address] Jeannine Maloney PRICE CHECKER [address] [place] [address] [address] [place] [address] Thyroid Function Towner, Lipid panel, Comprehensive metabolic panel, Additional followed-up results: 4 Social History Tobacco Use Types Packs/Day Years Used Date Smoking Tobacco: Former Cigarettes Smokeless Tobacco: Never AUDIT-C Answer Date Recorded Q1: How often [...] PM CDT Sexual Orientation Not on file documented as of this encounter Plan of Treatment Not on file documented as of this encounter Visit Diagnoses Not on filedocumented in this encounter Care Teams Natural [employer] Trader Relationship Specialty Start Date End Date Jeannine Maloney NP [address] [address] PCP - General Family Medicine 11/21/24 documented as of this encounter
[2025-07-30 17:57] VITALS: BP 121/80; PULSE 78; RESP 16; TEMP 36.2; O2SAT 98
--- NOTE | 2025-07-30 17:58 | ED.SKABFB ---
HPI - Skin/Abscess/Foreign Bdy General Chief complaint: Extremity Injury, Lower Stated complaint: ankle inury Time Seen by Provider: 07/30/25 17:58 Source: patient Mode of arrival: ambulatory Limitations: no limitations History of Present Illness HPI narrative: 54 yo M presents with redness and pain to lateral aspect R ankle for 1 day. Last week reports itchy rash to both lower legs. Assumed he had poison reyes for cutting grass. Today is first day without itching and rash to clearing up. Thinks he gave himself infection from scratching open skin. All systems reviewed and negative except as noted above. Related Data Home Medications ?Medication ?Instructions ?Recorded ?Confirmed ?Last Taken ?Type dextroamphetamine-amphetamine ER PO 06/23/25 Unknown History 30 mg 24hr capsule,extend release escitalopram oxalate 20 mg tablet mg 06/23/25 Unknown History lamotrigine 100 mg disintegrating mg 06/23/25 Unknown History tablet levothyroxine 100 mcg tablet mcg 06/23/25 Unknown History pantoprazole 40 mg tablet,delayed mg PO 06/23/25 Unknown History release Allergies Allergy/AdvReac Type Severity Reaction Status Date / Time Penicillins Allergy Mild Hives Verified 07/30/25 18:00 PMFSH Comments At time of signature, agree with nursing past medical, surgical, social and family history. There is no relevant family history pertinent to the presenting complaint. Exam Narrative: GENERAL: This is a well-nourished, well-developed patient, in no apparent distress. HEAD: normocephalic, atraumatic. EYES: PERRL. Sclera clear/white. Vision is grossly intact. EARS: External ears normal NOSE: External nose normal NECK: Neck supple, non-tender without lymphadenopathy, masses or thyromegaly. CARDIOVASCULAR: Regular rate and rhythm without murmurs, gallops, or rubs. RESPIRATORY: Clear to auscultation. Breath sounds equal bilaterally. No wheezes, rales, or rhonchi. SKIN: warm, Dry, intact with no suspicious lesions or rash, good texture and turgor. approx 1 cm abrasion to R lateral with surrounding erythemat and swelling approx. 3 to 4cm. tender on palpation. no fluctuance concerning for abscess. NEURO: awake, alert, and oriented to person, place and time. There were no obvious focal neurologic abnormalities. EXTREMITIES: No joint tenderness, effusion, or edema noted. Course Course Level of Care: Express Care Visit Vital Signs Vital signs: Reviewed MDM - Skin/Abscess/Foreign Bdy MDM Narrative Medical decision making narrative: will treat infected abrasion to RLE with doxycycline. pt is well appearing, nontoxic. ROM and distal NV intact. Differential Diagnosis Differential diagnosis: Likely abscess of skin or subcutaneous tissue, cellulitis, insect bites and impetigo Discharge Plan Discharge Clinical Impression: Abrasion of ankle, right, infected Qualifiers: Encounter type: initial encounter Qualified Code(s): S90.511A - Abrasion, right ankle, initial encounter; L08.9 - Local infection of the skin and subcutaneous tissue, unspecified Patient Disposition: Home Condition: Stable Instructions: Antibiotic Form, Cellulitis (ED) Additional Instructions: take antibiotic as prescribed until gone. Take ibuprofen or Tylenol every 6-8 hours as needed for pain. Elevate when at rest. Follow-up with your primary care physician if symptoms are not improving. Patient Language: Ukrainian Prescriptions: New doxycycline hyclate 100 mg capsule 100 mg PO BID 7 Days Qty: 14 0RF No Action levothyroxine 100 mcg tablet pantoprazole 40 mg tablet,delayed release (DR/EC) PO dextroamphetamine-amphetamine 30 mg capsule,extended release 24hr PO escitalopram oxalate 20 mg tablet lamotrigine 100 mg tablet,disintegrating Follow-up/Referrals: Jaciel Maloney RN [Primary Care Provider, Nursing] Time of Disposition: 18:07
== END 2025-07-30 18:11 | disposition home or self-care (01) ==
PROVIDERS: Emergency Provider Nurse Practitioner Family
DX: S90.511A Abrasion, right ankle, initial encounter (principal); X58.XXXA Exposure to other specified factors, initial encounter
CPT/HCPCS: 99213; G0463